=== PATIENT | female | born 1950 ===

== ENCOUNTER 2024-08-12 05:52 | Day surgery (SDC) | payer OTHER ==
[2024-08-12] MEDS ORDERED: MIDAZOLAM HCL 2 MG/2 ML VIAL IV ONE (10:15)
[2024-08-12] MEDS ORDERED: fentaNYL CITRATE 50 MCG/ML AMPUL IV PUSH ONE (10:15)
[2024-08-12] MEDS ORDERED: DIPHENHYDRAMINE HCL 50 MG/ML VIAL 1ML IV ONE (10:15)
[2024-08-12] MEDS ORDERED: ONDANSETRON HCL 2 MG/ML VIAL IV ONE (10:15)
== END 2024-08-12 12:10 | disposition home or self-care (01) ==
LOC: AMB-ENDOS 05:52
PROVIDERS: ATTEND Colon & Rectal Surgery
DX: K63.5 Polyp of colon (principal); R19.4 Change in bowel habit; Z12.11 Encounter for screening for malignant neoplasm of colon